=== PATIENT | female | born 1965 | race Asian ===

== ENCOUNTER 2019-08-11 14:49 | Inpatient (IN) | payer MEDICAID ==
[~2019-08-11] VITALS: Ht 160 cm; Wt 78.5 kg
--- NOTE | 2019-08-11 01:30 | NUR ---
PT PRETRANSFUSION V/S FOLLOWS: T 97 P 76 R 18 B/P 113/62 02 97% ON ROOM AIR. PT DENIES ANY PAIN.
--- NOTE | 2019-08-11 03:30 | NUR ---
PT IN BED NO REACTION FROM BLOOD TRANSFUSION WHICH IS IN PROGRESS. V/S FOLLOWS: T 98.6 P 81 R 18 B/P 105/68 02 97% ON ROOM AIR . PT REPORTS MINIMAL BLEEDING AT THIS TIME.
[2019-08-11 15:00] VITALS: BP 120/84
--- NOTE | 2019-08-11 15:10 | NUR ---
PT AMBULATED TO ER BED 5
[2019-08-11] MEDS ORDERED: NACL 0.9% 1,000 ML IV ONE (15:20)
[2019-08-11 16:04] LABS: BASOPHILS % (AUTO) 0.6 % (0.0-2.0); EOSINOPHILS # (AUTO) 0.1 K/uL (0-0.4); EOSINOPHILS % (AUTO) 1.3 % (0.0-4.0); HEMATOCRIT 21.2 % (36-48); LYMPHOCYTES # (AUTO) 1.4 K/uL (2.5-16.5); LYMPHOCYTES % (AUTO) 20.1 % (20.5-51.1); MEAN CORPUSCULAR HEMOGLOBIN 32 pg (27-31); MEAN CORPUSCULAR HGB CONC 33 g/dL (33-37); MEAN CORPUSCULAR VOLUME 98.2 fL (80-94); MONOCYTES # (AUTO) 0.3 K/uL (0.8-1.0); MONOCYTES % (AUTO) 4.3 % (1.7-9.3); NEUTROPHILS # (AUTO) 5.3 K/uL (1.8-7.7); NEUTROPHILS % (AUTO) 73.7 % (42.2-75.2); PLATELET COUNT (AUTO) 259 K/uL (140-450); RED BLOOD CELL COUNT(AUTO) 2.16 MIL/uL (4.20-5.40); RED CELL DISTRIBUTION WIDTH 15.5 % (11.6-13.7); WHITE BLOOD COUNT (AUTO) 7.2 K/uL (4.8-10.8)
--- NOTE | 2019-08-11 16:13 | NUR ---
BIB SELF C/O VAGINAL BLEEDING S/P HYSTEROSCOPY ON JUN 02. BLEEDING BEGAN BEGINNING OF JUL WITH MILD SPOTTING, PROGRESSED TO HEAVY BLEEDING WITH CLOTS. PT WHEN TO PCP, WHO PRESCRIBED METROPROGESTERONE. BLEEDING BECAME SCANT AMOUNTS WITH MEDICATION. PT ENDED MED ON AUG 09, AND BLEEDING HAS BEEN HEAVY SINCE THEN. PT REPORTS DIZZINESS, FATIGUE AND WEAKNESS. PT IS WEARING DIAPERS AND GOES THROUGH 6 A DAY. NO PMH, NKA Addendum: 08/11/19 at 1619 by [email or web address] BIB SELF C/O VAGINAL BLEEDING S/P HYSTEROSCOPY ON JUN 02. BLEEDING BEGAN BEGINNING OF JUL WITH MILD SPOTTING, PROGRESSED TO HEAVY BLEEDING WITH CLOTS. PT WHEN TO PCP, WHO PRESCRIBED METROPROGESTERONE. BLEEDING BECAME SCANT AMOUNTS WITH MEDICATION. PT ENDED MED ON AUG 09, AND BLEEDING HAS BEEN HEAVY SINCE THEN. PT REPORTS DIZZINESS, FATIGUE AND WEAKNESS. PT IS WEARING DIAPERS AND GOES THROUGH 6 A DAY. HX: DIABETES RX: HYDROCHLOROTHIAZIDE, NKA
[2019-08-11 16:21] LABS: ANION GAP 13.8 (8-16); CARBON DIOXIDE 26.2 mmol/L (21-32); CREATININE 0.7 mg/dL (0.6-1.3)
[2019-08-11 16:27] LABS: ALBUMIN 3.4 g/dL (3.4-5.0); TOTAL BILIRUBIN 0.1 mg/dL (0.0-1.0)
[2019-08-11 16:37] LABS: PROTHROMBIN TIME 8.7 secs (10.8-13.4)
[2019-08-11 16:51] LABS: BILIRUBIN,URINE NEGATIVE (NEGATIVE); BLOOD, URINE 3+ (NEGATIVE); LEUKOCYTE ESTERASE ,URINE TRACE (NEGATIVE); NITRITE, URINE NEGATIVE (NEGATIVE); UGLUCOSE NEGATIVE (NEGATIVE)
[2019-08-11 16:52] LABS: APPEARANCE,URINE BLOODY (CLEAR); COLOR,URINE RED (YELLOW)
--- NOTE | 2019-08-11 16:55 | NUR ---
Patient being evaluated by Dr. Morgan at bedside.
[2019-08-11 17:04] LABS: RBC,URINE TOO NUMEROUS TO COUN /HPF (0-5); WBC,URINE 0-5 /HPF (0-5)
[2019-08-11] MEDS ORDERED: FERR-252 PO (17:56)
[2019-08-11] MEDS ORDERED: HYDR12.51 PO (17:56)
[2019-08-11] MEDS ORDERED: MULT-153 PO (17:57)
[2019-08-11] MEDS ORDERED: ONDANSETRON 4 MG/2 ML VIAL IM/IVP PRN (18:05)
[2019-08-11] MEDS ORDERED: ACETAMINOPHEN 325 MG TAB PO PRN (18:05)
[2019-08-11] MEDS ORDERED: HYDROcodone/APAP 5/325 MG 1 TAB TAB PO PRN (18:05)
[2019-08-11] MEDS ORDERED: DOCUSATE SODIUM 100 MG GELCAP PO PRN (18:05)
[2019-08-11] MEDS ORDERED: KRIL500C PO (18:16)
--- NOTE | 2019-08-11 18:44 | NUR ---
Dr. Salomon is evaluating the patient at bedside.
[2019-08-11 18:45] LABS: BARBITURATE, URINE NEG. ng/ml (NEG <=200); BENZODIAZEPINE, URINE NEG. ng/mL (NEG <=200); CANNABINOID, URINE NEG. ng/mL (NEG <=50); COCAINE, URINE NEG. ng/mL (NEG <=300); OPIATE, URINE NEG. ng/mL (NEG <=2000); PHENCYCLIDINE SCREEN,URINE NEG. ng/mL (NEG <=25)
--- NOTE | 2019-08-11 18:49 | NUR ---
Dr. Hurt is evaluating the patient at bedside.
[2019-08-11 19:05] LABS: MAGNESIUM 2.5 mg/dL (1.8-2.4); PHOSPHORUS 4.1 mg/dL (2.5-4.9); THYROID STIMULATING HORMONE 3.04 uIU/mL (0.34-3.74)
--- NOTE | 2019-08-11 19:09 | NUR ---
Patient will be admitted to care of MD BOYD. Admited to MED SURG. Will go to room 120B. Belongings list completed. Report to JACQUIE VICTOR.
[2019-08-11 19:30] VITALS: BP 124/77
[2019-08-11] MEDS ORDERED: medroxyPROGESTERone 10 MG TAB PO SCH (19:30)
--- NOTE | 2019-08-11 19:30 | NUR ---
P R T BROUGHT UP BY WHEELCHAIR REPORT GIVEN BY ER NURSE, PT IS AOX4 AND AMBULATORY (STAND BY ASSIST FOR B/[OCCASIONAL C/O OF DIZZINESS). PT IV SITE 20G ON LEFT WRIST INTACT. V/S FOLLOWS; T98.8 P 88 R 18 B/P 124/77 02 98% ON ROOM AIR. ALL REQUESTED NEEDS ATTENDED AND CALL CARRILLO IN REACH.
--- NOTE | 2019-08-11 21:00 | NUR ---
PT GIVEN REQUESTED SANDWICH AND INCONTINENT SUPPLIES FOR BLEEDING PT CHANGED PAD. PT GIVEN ORDERED PROGESTERONE AND N/S HUNG AND RUNNING AT 120MLS/HR.
[2019-08-11] MEDS: NACL 0.9% 1,000 ML IV SCH (23:49)
--- NOTE | 2019-08-12 | NUR ---
PT IN BED, SHE HAD SOAKED ANOTHER PAD., HOWEVER SHE DENIES ANY PAIN V/S FOLLOWS; T 98.2 P 82 R 18 B/P 97/55 02 97%. ALL UNIVERSAL PRECAUTIONS IN PLACE.
[2019-08-12] MEDS ORDERED: medroxyPROGESTERone 10 MG TAB ONE (00:34)
[2019-08-12] MEDS ORDERED: cefTRIAXone 1,000 MG VIAL ONE (00:36)
--- NOTE | 2019-08-12 02:00 | NUR ---
TRANSFUSION STARTED NO REACTIONS NOTED V/S FOLLOWS; T 98 P 81 R 18 B/P 104/55 02 98% ON ROOM AIR.
--- NOTE | 2019-08-12 02:30 | NUR ---
PT IN BED NO NEGATIVE REACTION TO TRANSFUSION NOTED. PT HAS NO C/O VOICED. V/S FOLLOWS: T 98.5 P 86 R 18 B/P 118/61 0-2 98% ON ROOM AIR. PT WAS ASSISTED TO TOILET, SHE HAD FINISHED 3 MAXI PADS OF BLOOD.
[2019-08-12 04:00] VITALS: BP 115/77
--- NOTE | 2019-08-12 05:30 | NUR ---
PT IN BED TRANSFUSION COMPLETED, PT REPORTS NO MORE VAGINAL BLEEDING AT THIS TIME. V/S FOLLOWS: T 98.4 P 75 R 18 B/P 105/52 02 98% ON ROOM AIR. PT DENIES ANY PAIN OR REACTION TO TRANSFUSION. ALL REQUESTED NEEDS ATTENDED AND CALL CARRILLO IN REACH.
--- NOTE | 2019-08-12 07:20 | NUR ---
RECEIVED BEDSIDE REPORT FROM REPAIRER CYLINDER HEADS NURSE. PATIENT IS AWAKE, ALERT AND ORIENTEDX4. NO SIGNS OF DISTRESS ON RA. SKIN IS INTACT. IV ON L WRIST 20G INFUSING NS AT 120. CLEAN, DRY AND INTACT. AMBULATORY. CONTINENT. ABLE TO MAKE NEEDS KNOWN. BED IN LOW POSITION. CALL LIGHT WITHIN REACH. WILL CONTINUE TO MONITOR THE PATIENT.
[2019-08-12 08:00] VITALS: BP 109/69
[2019-08-12 08:07] LABS: FERRITIN 41 ng/mL (15-150); FOLIC ACID > 20.00 ng/mL (>3.0); TRANSFERRIN 301 mg/dL (200-370)
--- NOTE | 2019-08-12 08:43 | NUR ---
PATIENT HAS BEEN SCREENED AND CATEGORIZED LOW NUTRITION RISK. PATIENT WILL BE SEEN WITHIN 7 DAYS OF ADMISSION. 08/18/[address]
--- NOTE | 2019-08-12 09:30 | NUR ---
PATIENT IN NO DISTRESS. WILL CONTINUE TO MONITOR THE PATIENT.
[2019-08-12] MEDS: LACTOBACILLUS RHAMNOSUS GG 1 EACH CAP PO SCH (09:42)
[2019-08-12] MEDS: FERROUS SULFATE 325 MG TABEC PO SCH (09:43)
[2019-08-12] MEDS: HYDROCHLOROTHIAZIDE 25 MG TAB PO SCH (09:43)
[2019-08-12] MEDS: medroxyPROGESTERone 10 MG TAB PO SCH (09:43)
[2019-08-12] MEDS: MULTIVITAMIN 1 TAB PO SCH (09:43)
[2019-08-12] MEDS ORDERED: CRUSHER, PILL MC ONE (09:45)
--- NOTE | 2019-08-12 10:35 | NUR ---
Watch And Clock Repair Clerk Note: Basic Screen: Yes High Risk DC Screen [place]: BLAS [place] Relationship: EMPLOYER Pre-Admission Living Arrangements: Lives Alone Prior ADL Independent Current Home Health Name/Tel: N/A Current DME/02 Name/Tel: N/A Current Hospice Name/Tel: N/A Current Dialysis Name/Tel: N/A Healthcare Decision Maker: Patient Advance Directive No - REFUSED Physician Orders for Life Sustaining Treatment Form No Patient/Family Have Educational Needs No Information Taught: Advance Directive Person Taught: Patient Teaching Tools: Verbal Factors Affecting Learning: None Participation Level: Refused Evaluation: Verbalizes Understanding Needs Additional Education: No Discipline: Case Mgt/Social Svcs Tentative Discharge Plan/Destination: No Needs Identified Will require assistance post discharge: No Referred to Mandolin Repairer: No Tentative Discharge Plan Summary: Patient is a 53-year-old female admitted for uterine bleed. Patient has PMHX of hypertension, abnormal uterine bleeding, and fibroids. Patient has was admitted from home. SW met with patient at bedside to verify demographics. Patient corrected that she [place] off [place] [address] [place] [address]. Patient reports no history of mental health and no history of substance abuse. SW provided patient education on advanced directive. Patient stated that her plan after discharge is to return home. No further needs identified. Signature: AMINATA Worthy Date: Aug 12, 2019 Time: 10:34
[2019-08-12] MEDS: NACL 0.9% 1,000 ML IV SCH ×3 (10:41→19:01)
--- NOTE | 2019-08-12 11:00 | NUR ---
BLOOD STARTED AT THIS TIME. WILL STAY WITH PATIENT FOR 15 MINS TO MONITOR FOR A REACTION.
--- NOTE | 2019-08-12 13:00 | NUR ---
VITALS ARE STABLE. NO SIGNS OF BLOOD TRANSFUSION REACTION
--- NOTE | 2019-08-12 14:20 | NUR ---
BLOOD TRANSFUSION HAS BEEN COMPLETED. NO SIGNS OF BLOOD TRANSFUSION REACTION. VITALS ARE STABLE. PATIENT TOLERATED WELL
[2019-08-12 16:00] VITALS: BP 106/59
[2019-08-12 16:10] LABS: BASOPHILS % (AUTO) 0.5 % (0.0-2.0); EOSINOPHILS # (AUTO) 0.2 K/uL (0-0.4); EOSINOPHILS % (AUTO) 2.2 % (0.0-4.0); HEMATOCRIT 26.6 % (36-48); HEMOGLOBIN 8.7 g/dL (12.0-16.0); LYMPHOCYTES # (AUTO) 1.8 K/uL (2.5-16.5); LYMPHOCYTES % (AUTO) 23.9 % (20.5-51.1); MEAN CORPUSCULAR HEMOGLOBIN 31 pg (27-31); MEAN CORPUSCULAR HGB CONC 33 g/dL (33-37); MONOCYTES # (AUTO) 0.5 K/uL (0.8-1.0); MONOCYTES % (AUTO) 6.5 % (1.7-9.3); NEUTROPHILS % (AUTO) 66.9 % (42.2-75.2); PLATELET COUNT (AUTO) 228 K/uL (140-450); RED BLOOD CELL COUNT(AUTO) 2.83 MIL/uL (4.20-5.40); RED CELL DISTRIBUTION WIDTH 16.6 % (11.6-13.7); WHITE BLOOD COUNT (AUTO) 7.4 K/uL (4.8-10.8)
--- NOTE | 2019-08-12 16:20 | NUR ---
PATIENT IN NO DISTRESS. WILL CONTINUE TO MONITOR THE PATIENT.
[2019-08-12 16:49] LABS: ANION GAP 9.7 (8-16); CARBON DIOXIDE 28.2 mmol/L (21-32); CREATININE 0.8 mg/dL (0.6-1.3); POTASSIUM 3.9 mmol/L (3.5-5.1)
[2019-08-12 17:45] LABS: MAGNESIUM 2.4 mg/dL (1.8-2.4)
--- NOTE | 2019-08-12 18:00 | NUR ---
PATIENT IN NO DISTRESS. WILL CONTINUE TO MONITOR
--- NOTE | 2019-08-12 19:15 | NUR ---
GAVE BEDSIDE REPORT TO RAND SEWER NURSE. PATIENT ENDORSED IN STABLE CONDITION
--- NOTE | 2019-08-12 19:16 | NUR ---
RECD. RESTING IN BED, AWAKE, A/OX4. RESPIRATION EVEN AND UNLABORED. IV OF NS AT 120 ML/HR INFUSING, LEFT WRIST G20. AMBULATORY TO , INDEPENDENT. STATED SHE IS STILL HAVING BLEEDING, MODERATE TO HEAVY AT TIMES, WITH SOME SMALL SOLID BLOOD COMING OUT. PLAN OF CARE FOR THE SHIFT DISCUSSED. VERBALIZED UNDERSTANDING. DENIES PAIN 0/10.
--- NOTE | 2019-08-12 22:00 | NUR ---
STILL WITH UTERINE BLEEDING, FOUR PADS MODERATELY SOAKED. ASSISTED TO GET OUT OF BED AND CHANGED PADS.
--- NOTE | 2019-08-12 22:29 | NUR ---
Patient's Plan of Care was discussed and reviewed with AUDREY: ANA ROSA
[2019-08-13] VITALS: BP 111/72
--- NOTE | 2019-08-13 | NUR ---
SLEEPING COMFORTABLY IN BED.
[2019-08-13] MEDS: NACL 0.9% 1,000 ML IV SCH (03:21)
--- NOTE | 2019-08-13 07:00 | NUR ---
WITH TWO HEAVY SOAKED PADS, WORRIED ABOUT HER BLEEDING. WILL SPEAK WITH MD TODAY.
[2019-08-13 07:01] LABS: BASOPHILS % (AUTO) 0.7 % (0.0-2.0); EOSINOPHILS # (AUTO) 0.1 K/uL (0-0.4); EOSINOPHILS % (AUTO) 2.3 % (0.0-4.0); HEMATOCRIT 26.5 % (36-48); HEMOGLOBIN 8.6 g/dL (12.0-16.0); LYMPHOCYTES # (AUTO) 1.3 K/uL (2.5-16.5); LYMPHOCYTES % (AUTO) 23.8 % (20.5-51.1); MEAN CORPUSCULAR HEMOGLOBIN 31 pg (27-31); MEAN CORPUSCULAR HGB CONC 33 g/dL (33-37); MEAN CORPUSCULAR VOLUME 95.7 fL (80-94); MONOCYTES # (AUTO) 0.2 K/uL (0.8-1.0); MONOCYTES % (AUTO) 4.5 % (1.7-9.3); NEUTROPHILS # (AUTO) 3.8 K/uL (1.8-7.7); NEUTROPHILS % (AUTO) 68.7 % (42.2-75.2); PLATELET COUNT (AUTO) 227 K/uL (140-450); RED BLOOD CELL COUNT(AUTO) 2.77 MIL/uL (4.20-5.40); RED CELL DISTRIBUTION WIDTH 17.2 % (11.6-13.7); WHITE BLOOD COUNT (AUTO) 5.5 K/uL (4.8-10.8)
--- NOTE | 2019-08-13 07:15 | NUR ---
CONDITION REMAIN STABLE. ENDORSED TO AM SHIFT NURSE FOR CONTINUITY OF CARE.
--- NOTE | 2019-08-13 07:16 | NUR ---
RECEIVED BEDSIDE REPORT FROM VINYL WELDER AND FABRICATOR NURSE. PATIENT IS AWAKE, ALERT AND ORIENTEDX4. NO SIGNS OF DISTRESS ON RA. SKIN IS INTACT. IV ON L WRIST 20G INFUSING NS AT 120. CLEAN, DRY AND INTACT. AMBULATORY. CONTINENT. ABLE TO MAKE NEEDS KNOWN. BED IN LOW POSITION. CALL LIGHT WITHIN REACH, WILL CONTINUE TO MONITOR THE PATIENT.
[2019-08-13 07:36] LABS: CARBON DIOXIDE 25.3 mmol/L (21-32); CREATININE 0.8 mg/dL (0.6-1.3); POTASSIUM 4.3 mmol/L (3.5-5.1)
[2019-08-13 08:00] VITALS: BP 127/83
[2019-08-13 08:58] LABS: MAGNESIUM 2.1 mg/dL (1.8-2.4); PHOSPHORUS 3.3 mg/dL (2.5-4.9)
[2019-08-13] MEDS: HYDROCHLOROTHIAZIDE 25 MG TAB PO SCH (10:00)
[2019-08-13] MEDS: LACTOBACILLUS RHAMNOSUS GG 1 EACH CAP PO SCH (10:00)
[2019-08-13] MEDS: FERROUS SULFATE 325 MG TABEC PO SCH (10:00)
[2019-08-13] MEDS: MULTIVITAMIN 1 TAB PO SCH (10:01)
[2019-08-13] MEDS: medroxyPROGESTERone 10 MG TAB PO SCH (10:01)
--- NOTE | 2019-08-13 10:03 | NUR ---
ADMINISTERED MEDS. PATIENT TOLERATED WELL. EDUCATED ON SIDE EFFECTS. WILL CONTINUE TO MONITOR
[2019-08-13] MEDS ORDERED: MEDR10TA33 PO (10:04)
[2019-08-13] MEDS ORDERED: CHLORHEXADINE GLUC 2% CLOTH TP SCH (11:00)
[2019-08-13] MEDS ORDERED: MUPIROCIN CA NASAL 2% 1GM TUBE NS SCH (12:00)
--- NOTE | 2019-08-13 12:00 | NUR ---
EDUCATED PATIENT ON DISEASE PROCESS, ABN S/SX, WHEN TO GO TO THE ER, EDUCATED ON MEDS, MEDS, SENT TO PHARMACY, FOLLOW UP W DR DAMICO TOMORROW. PNA NOT A CANDIDATE, FLU UP TO DATE. IV REMOVED, TIP INTACT. PATIENT PICKED UP AND LEFT IN STABLE CONDITION TO GO HOME BUT PATIENT IS GOING TO STOP AT DR PADRON OFFICE FIRST. ID BANDS REMOVED
[2019-08-14 09:55] LABS: CHOL/HDL RATIO 3.8 (1-4.5)
== END 2019-08-13 12:00 | disposition home or self-care (01) | DRG 532 ==
LOC: MED 14:49 → MTU 18:09
PROVIDERS: ADMIT General Practice; ATTEND General Practice
PROC: 30233N1 Transfusion of Nonautologous Red Blood Cells into Peripheral Vein, Percutaneous Approach (ICD-10-PCS; principal; 2019-08-12)
DX: N93.9 Abnormal uterine and vaginal bleeding, unspecified (principal); E83.41 Hypermagnesemia; E87.8 Other disorders of electrolyte and fluid balance, not elsewhere classified; D64.9 Anemia, unspecified; N39.0 Urinary tract infection, site not specified; R31.9 Hematuria, unspecified; I10 Essential (primary) hypertension; Z90.710 Acquired absence of both cervix and uterus; Z83.3 Family history of diabetes mellitus; Z82.49 Family history of ischemic heart disease and other diseases of the circulatory system
CPT/HCPCS: 36415; 71045; 76830; 80048; 80053; 80305; 81001; 82150; 82607; 82728; 82746; 83036; 83540; 83615; 83690; 83735; 83880; 84100; 84134; 84443; 84484; 84703; 85025; 85045; 85610; 85730; 86886; 86900; 86901; 86920; 87081; 87086; 96360; 99285; J0696; J7030; J7060; P9016; Q0092